=== PATIENT | male | born 1950 | race Caucasian/White ===

== ENCOUNTER 2017-04-25 07:16 | Emergency (ER) | payer BC, OTHER ==
[2017-04-25] MEDS ORDERED: Ondansetron 4 MG/2 ML SDV IVPUSH ONE (07:19)
[2017-04-25] MEDS ORDERED: Promethazine 25 MG/ML SDV IM ONE (07:19)
[2017-04-25] MEDS ORDERED: Sodium Chloride 0.9% 1,000 ML IV ONE (07:19)
--- NOTE | 2017-04-25 07:22 | EDM.PDOC ---
ED HPI GENERAL MEDICAL PROBLEM - General Chief Complaint: General Stated Complaint: DIZZY SPELLS Time Seen by Provider: 04/25/17 07:21 Source of Information: Reports: Patient - History of Present Illness INITIAL COMMENTS - FREE TEXT/NARRATIVE: HISTORY AND PHYSICAL: History of present illness: []Patient with benign positional vertigo presents with sudden onset of dizziness this morning he is able ambulate on his own but needs to support himself to do so. Symptoms began suddenly initially didn't reveal that he has a history of the benign positional vertigo we did perform a full workup all is within normal limits as below Symptoms resolved after Phenergan IM Currently no fever nausea vomiting diarrhea constipation chest pain shortness breath headache dizziness palpitation about a urine symptoms On arrival I could clearly reproduce symptoms with head position specifically chin to chest maneuver increased symptoms as well as lying down increased symptoms sharply Review of systems: As per history of present illness and below otherwise all systems reviewed and negative. Past medical history: As per history of present illness and as reviewed below otherwise noncontributory. Surgical history: As per history of present illness and as reviewed below otherwise noncontributory. Social history: No reported history of drug or alcohol abuse. Family history: As per history of present illness and as reviewed below otherwise noncontributory. Physical exam: HEENT: Atraumatic, normocephalic, pupils reactive, negative for conjunctival pallor or scleral icterus, mucous membranes moist, throat clear, neck supple, nontender, trachea midline. Head position as per history of present illness did change symptoms dramatically Lungs: Clear to auscultation, breath sounds equal bilaterally, chest nontender. Heart: S1S2, regular, negative for clicks, rubs, or JVD. Abdomen: Soft, nondistended, nontender. Negative for masses or hepatosplenomegaly. Negative for costovertebral tenderness. Pelvis: Stable nontender. Genitourinary: Deferred. Rectal: Deferred. Extremities: Atraumatic, negative for cords or calf pain. Neurovascular unremarkable. Neuro: Awake, alert, oriented. Cranial nerves II through XII unremarkable. Cerebellum unremarkable. Motor and sensory unremarkable throughout. Exam nonfocal. Diagnostics: []Head CT no contrast Chest 1 view EKG Lab as below Orthostatic vital signs Therapeutics: []Liter normal saline bolus Zofran 8 mg IV Phenergan 25 mg IV Phenergan 25 mg by mouth every 6 when necessary nausea vomiting dizziness #30 no refill Follow-up with Dr. Wright 2 weeks sooner as needed Impression: []Dizziness associated with head position Benign positional vertigo Chronic history of baseline Definitive disposition and diagnosis as appropriate pending reevaluation and review of above. - Related Data Allergies Allergy/AdvReac Type Severity Reaction Status Date / Time No Known Allergies Allergy Verified 04/25/17 07:20 Home Meds: Home Meds Colesevelam HCl [Welchol] 0 mg PO DAILY 04/25/17 [History] Enalapril [Vasotec] 20 mg PO DAILY 04/25/17 [History] Hydrochlorothiazide 25 mg PO DAILY 04/25/17 [History] ED ROS GENERAL - Review of Systems Review Of Systems: ROS reveals no pertinent complaints other than HPI. ED EXAM, GENERAL - Physical Exam Exam: See Below Course - Vital Signs Last Recorded V/S: Last Vital Signs Temp 36.1 C 04/25/17 07:16 Pulse 68 04/25/17 07:16 Resp 18 04/25/17 07:16 BP 166/91 H 04/25/17 07:16 Pulse Ox 96 04/25/17 07:16 Orthostatic Blood Pressure [ 120/65 Standing] Orthostatic Blood Pressure [ 142/66 Sitting] Orthostatic Blood Pressure [ 135/66 Supine] - Orders/Labs/Meds Orders: Active Orders 24 hr Category Date Time Status EKG Documentation Completion [RC] STAT Care 04/25/17 07:20 Active Orthostatic Vital Signs [RC] ASDIRECTED Care 04/25/17 07:20 Active Chest 1V Frontal [CR] Stat Exams 04/25/17 07:20 Taken UA W/MICROSCOPIC [URIN] Stat Lab 04/25/17 08:28 Results Labs: Laboratory Tests 04/25/17 04/25/17 04/25/17 Range/Units 07:27 07:27 07:27 WBC 9.73 (4.0-11.0) K/uL RBC 5.30 (4.50-5.90) M/uL Hgb 16.3 (13.0-17.0) g/dL Hct 46.0 (38.0-50.0) % MCV 86.8 (80.0-98.0) fL MCH 30.8 (27.0-32.0) pg MCHC 35.4 (31.0-37.0) g/dL RDW Std Deviation 42.7 (28.0-62.0) fl RDW Coeff of Aminta 14 (11.0-15.0) % Plt Count 190 (150-400) K/uL MPV 10.60 (7.40-12.00) fL Neut % (Auto) 50.8 (48.0-80.0) % Lymph % (Auto) 38.3 (16.0-40.0) % [place] % (Auto) 9.1 (0.0-15.0) % Eos % (Auto) 1.3 (0.0-7.0) % Baso % (Auto) 0.5 (0.0-1.5) % Neut # (Auto) 4.9 (1.4-5.7) K/uL Lymph # (Auto) 3.7 H (0.6-2.4) K/uL [place] # (Auto) 0.9 H (0.0-0.8) K/uL Eos # (Auto) 0.1 (0.0-0.7) K/uL Baso # (Auto) 0.1 (0.0-0.1) K/uL Nucleated RBC % 0.0 /100WBC Nucleated RBCs # 0 K/uL INR (0.86-1.11) Sodium 136 (136-146) mmol/L Potassium 4.1 (3.5-5.1) mmol/L Chloride 101 (98-110) mmol/L Carbon Dioxide 27 (21-31) mmol/L BUN 15 (6.0-23.0) mg/dL Creatinine 0.8 (0.6-1.5) mg/dL Est Cr Clr Drug Dosing 93.28 mL/min Estimated GFR (MDRD) > 60.0 ml/min Glucose 205 H (60-110) mg/dL Calcium 9.8 (8.8-10.8) mg/dL Total Bilirubin 1.0 (0.1-1.5) mg/dL AST 22 (5-40) IU/L ALT 33 (8-54) IU/L Alkaline Phosphatase 97 (40-150) Creatine Kinase 148 (9-236) IU/L CK-MB (CK-2) 2.7 (0-6.6) ng/ml Troponin I < 0.10 (0.0-0.29) NG/ML Total Protein 7.4 (6.0-8.0) g/dL Albumin 4.1 (3.4-4.8) g/dL Globulin 3.3 (2.0-3.5) g/dL Albumin/Globulin Ratio 1.2 L (1.3-2.8) Urine Color Urine Appearance Urine pH (5.0-8.0) Ur Specific [place] (1.001-1.035) Urine Protein (NEGATIVE) mg/dL Urine Glucose (UA) (NEGATIVE) mg/dL Urine Ketones (NEGATIVE) mg/dL Urine Occult Blood (NEGATIVE) Urine Nitrite (NEGATIVE) Urine Bilirubin (NEGATIVE) Urine Urobilinogen (<2.0) EU/dL Ur Leukocyte Esterase (NEGATIVE) Urine Opiates Screen (NEGATIVE) Ur Oxycodone Screen (NEGATIVE) Urine Methadone Screen (NEGATIVE) Ur Barbiturates Screen (NEGATIVE) Ur Phencyclidine Scrn (NEGATIVE) Ur Amphetamine Screen (NEGATIVE) U Methamphetamines Scrn (NEGATIVE) U Benzodiazepines Scrn (NEGATIVE) U Cocaine Metab Screen (NEGATIVE) U Marijuana (THC) Screen (NEGATIVE) 04/25/17 04/25/17 04/25/17 Range/Units 07:27 08:28 08:28 WBC (4.0-11.0) K/uL RBC (4.50-5.90) M/uL Hgb (13.0-17.0) g/dL Hct (38.0-50.0) % MCV (80.0-98.0) fL MCH (27.0-32.0) pg MCHC (31.0-37.0) g/dL RDW Std Deviation (28.0-62.0) fl RDW Coeff of Aminta (11.0-15.0) % Plt Count (150-400) K/uL MPV (7.40-12.00) fL Neut % (Auto) (48.0-80.0) % Lymph % (Auto) (16.0-40.0) % [place] % (Auto) (0.0-15.0) % Eos % (Auto) (0.0-7.0) % Baso % (Auto) (0.0-1.5) % Neut # (Auto) (1.4-5.7) K/uL Lymph # (Auto) (0.6-2.4) K/uL [place] # (Auto) (0.0-0.8) K/uL Eos # (Auto) (0.0-0.7) K/uL Baso # (Auto) (0.0-0.1) K/uL Nucleated RBC % /100WBC Nucleated RBCs # K/uL INR 0.98 (0.86-1.11) Sodium (136-146) mmol/L Potassium (3.5-5.1) mmol/L Chloride (98-110) mmol/L Carbon Dioxide (21-31) mmol/L BUN (6.0-23.0) mg/dL Creatinine (0.6-1.5) mg/dL Est Cr Clr Drug Dosing mL/min Estimated GFR (MDRD) ml/min Glucose (60-110) mg/dL Calcium (8.8-10.8) mg/dL Total Bilirubin (0.1-1.5) mg/dL AST (5-40) IU/L ALT (8-54) IU/L Alkaline Phosphatase (40-150) Creatine Kinase (9-236) IU/L CK-MB (CK-2) (0-6.6) ng/ml Troponin I (0.0-0.29) NG/ML Total Protein (6.0-8.0) g/dL Albumin (3.4-4.8) g/dL Globulin (2.0-3.5) g/dL Albumin/Globulin Ratio (1.3-2.8) Urine Color YELLOW Urine Appearance CLEAR Urine pH 6.5 (5.0-8.0) Ur Specific [place] 1.020 (1.001-1.035) Urine Protein NEGATIVE (NEGATIVE) mg/dL Urine Glucose (UA) 100 H (NEGATIVE) mg/dL Urine Ketones NEGATIVE (NEGATIVE) mg/dL Urine Occult Blood NEGATIVE (NEGATIVE) Urine Nitrite NEGATIVE (NEGATIVE) Urine Bilirubin NEGATIVE (NEGATIVE) Urine Urobilinogen 0.2 (<2.0) EU/dL Ur Leukocyte Esterase NEGATIVE (NEGATIVE) Urine Opiates Screen NEGATIVE (NEGATIVE) Ur Oxycodone Screen NEGATIVE (NEGATIVE) Urine Methadone Screen NEGATIVE (NEGATIVE) Ur Barbiturates Screen NEGATIVE (NEGATIVE) Ur Phencyclidine Scrn NEGATIVE (NEGATIVE) Ur Amphetamine Screen NEGATIVE (NEGATIVE) U Methamphetamines Scrn NEGATIVE (NEGATIVE) U Benzodiazepines Scrn NEGATIVE (NEGATIVE) U Cocaine Metab Screen NEGATIVE (NEGATIVE) U Marijuana (THC) Screen NEGATIVE (NEGATIVE) Meds: Medications Discontinued Medications Generic Name Dose Route Start Last Admin Trade Name Charissa PRN Reason Stop Dose Admin Sodium Chloride 1,000 mls @ 999 mls/hr 04/25/17 07:19 04/25/17 07:36 Normal Saline IV 04/25/17 08:19 999 mls/hr STAT ONE Administration Ondansetron HCl 8 mg 04/25/17 07:19 04/25/17 07:36 Zofran IVPUSH 04/25/17 07:20 8 mg ONETIME ONE Administration Promethazine HCl 25 mg 04/25/17 07:19 04/25/17 07:45 Phenergan IM 04/25/17 07:20 25 mg ONETIME ONE Administration Departure - Departure Time of Disposition: 09:00 Disposition: Home, Self-Care 01 Condition: Good Clinical Impression: Benign positional vertigo - Discharge Information Forms: ED Department Discharge Additional Instructions: Medication as prescribed Return symptoms persist or worsen Follow-up with primary care Dr. Gibson Wright for continued management follow-up with him in 2 weeks sooner as needed He may benefit from Candice's maneuvers as performed in the past The following information is given to patients seen in the emergency department who are being discharged to home. This information is to outline your options for follow-up care. We provide all patients seen in our emergency department with a follow-up referral. The need for follow-up, as well as the timing and circumstances, are variable depending upon the specifics of your emergency department visit. If you don't have a primary care physician on staff, we will provide you with a referral. We always advise you to contact your personal physician following an emergency department visit to inform them of the circumstance of the visit and for follow-up with them and/or the need for any referrals to a consulting specialist. The emergency department will also refer you to a specialist when appropriate. This referral assures that you have the opportunity for follow-up care with a specialist. All of these measure are taken in an effort to provide you with optimal care, which includes your follow-up. Under all circumstances we always encourage you to contact your private physician who remains a resource for coordinating your care. When calling for follow-up care, please make the office aware that this follow-up is from your recent emergency room visit. If for any reason you are refused follow-up, please contact the [facility] emergency department at and asked to speak to the emergency department charge nurse. - My Orders Last 24 Hours: My Active Orders 04/25/17 07:20 EKG Documentation Completion [RC] STAT Orthostatic Vital Signs [RC] ASDIRECTED Chest 1V Frontal [CR] Stat 04/25/17 08:28 UA W/MICROSCOPIC [URIN] Stat - Assessment/Plan Last 24 Hours: My Active Orders 04/25/17 07:20 EKG Documentation Completion [RC] STAT Orthostatic Vital Signs [RC] ASDIRECTED Chest 1V Frontal [CR] Stat 04/25/17 08:28 UA W/MICROSCOPIC [URIN] Stat
[2017-04-25 08:07] LABS: CHLORIDE,CL 101 mmol/L (98-110); SODIUM,NA 136 mmol/L (136-146)
--- NOTE | 2017-04-25 08:46 | CT ---
EXAMINATION: Non contrast CT head. Coronal and sagittal reformats. HISTORY: Pain FINDINGS: No evidence of intra or extra axial hemorrhage, mass, midline shift, hydrocephalus or edema. No hypoattenuation changes in the major vascular territories to suggest acute infarct. No abnormal intracranial calcifications are detected. No evidence of substantial vascular calcificat ions. Paranasal sinuses and mastoid air cells are well aerated without substantial findings. The orbits an d globes appear symmetric. Pituitary fossa appears unremarkable. Calvarium is intact. No evidence of skull fracture. IMPRESSION: No acute intracranial findings.
--- NOTE | 2017-04-25 10:06 | CR ---
EXAM DATE: 04/25/17 PATIENT'S AGE: 66 Patient: CLIFF LIRIANO Facility: [place], [place] Site . Site : 1950 Study: XRay Chest [id number] 8:01:21 AM Ordering Physician: Doctor Banks Final Report: INDICATION: PAIN/SHORTNESS OF BREATH Indication: Pain. Shortness of breath. Technique: Chest one view. Comparison: None. Findings: front desk monitor leads overlie the patient. There is vascular crowding at the right lung base, with elevation of the right hemidiaphragm. There is no acute airspace disease or pneumothorax previously fluid is normal. The osseous structures are intact. Lateral costophrenic sulci are sharp. Impression: Elevation of the dome of the right hemidiaphragm, with atelectasis at the right lung base. Dictated by Albert Melendez MD @ 04/25/2017 8:16:00 AM Dictated by: Albert Melendez MD @ 04/25/2017 08:16:06 (Electronic Signature) Report Signed by Proxy. [facility]
== END 2017-04-25 09:13 | disposition home or self-care (01) ==
LOC: MW.ED 07:16
DX: H81.10 Benign paroxysmal vertigo, unspecified ear (principal); Z79.899 Other long term (current) drug therapy
CPT/HCPCS: 36415; 70450; 71010; 80053; 80305; 81001; 82550; 82553; 84484; 85025; 85610; 93005; 96361; 96372; 96374; 99284; J2405; J2550; J7040; 99282